=== PATIENT | female | born 1960 | race Caucasian/White ===

== ENCOUNTER → 2017-12-11 | Outpatient (CLI) | payer BC ==
[2017-12-11 18:59] LABS: DHEA Sulfate 14.6 ug/dL (26.0-430.0)
[2017-12-11 19:15] LABS: Progesterone <0.2 ng/mL
[2017-12-15 10:37] LABS: Pregnenolone 15 ng/dL (22-237)
[2017-12-16 13:16] LABS: Estrone 44 pg/mL
== END | disposition home or self-care (01) ==
LOC: LABWHC1 12:17
PROVIDERS: ATTEND Surgery
DX: E34.9 Endocrine disorder, unspecified (principal); R61 Generalized hyperhidrosis; G47.00 Insomnia, unspecified; R53.81 Other malaise; R68.82 Decreased libido
CPT/HCPCS: 36415; 82627; 82670; 82679; 83001; 84140; 84144; 84270; 84402; 84403

== ENCOUNTER → 2018-03-09 | Outpatient (CLI) | payer OTHER ==
--- NOTE | 2018-03-09 13:33 | XR ---
EXAMINATION TYPE: XR Hip Bilateral Complete DATE OF EXAM: 03/09/2018 CLINICAL HISTORY: Chronic bilateral hip pain TECHNIQUE: AP and frogleg views of the bilateral hips are obtained. COMPARISON: None. FINDINGS: There is no acute fracture/dislocation evident in either hip. The joint space in the bila teral hips appears within normal limits. The overlying soft tissue appears unremarkable bilaterally. IMPRESSION: Unremarkable 2 views of the bilateral hips.
== END | disposition home or self-care (01) ==
LOC: RADXRMAIN 12:49
PROVIDERS: ATTEND Family Medicine
DX: M25.552 Pain in left hip (principal); M25.551 Pain in right hip
CPT/HCPCS: 73521

== ENCOUNTER → 2019-02-10 | Outpatient (CLI) | payer BC ==
[2019-02-10 10:24] LABS: Potassium 4.7 mmol/L (3.5-5.1)
== END | disposition home or self-care (01) ==
LOC: LABPAT 09:16
PROVIDERS: ATTEND Podiatrist Foot & Ankle Surgery
DX: Z01.812 Encounter for preprocedural laboratory examination (principal)
CPT/HCPCS: 36415; 80051

== ENCOUNTER 2019-02-16 11:38 | Day surgery (SDC) | payer BC, OTHER ==
[2019-02-09 12:05] VITALS: BMI 36.8
[~2019-02-16 11:38] MED LIST: DEXAMETHASONE SOD PHOSPHATE 10 MG/ML 1 ML VIAL IV ONE; HYDROmorphone 0.5 MG/0.5 ML SYRINGE IVP PRN; LACTATED RINGERS 1,000 ML IV SCH; LIDOCAINE 1% 20 ML VIAL (10MG/ML) FOR IV START INTRADERMA PRN; ONDANSETRON 4 MG/2 ML VIAL IVP ONE; Pre Op ABX Message 1 EACH MISC MISCELLANE ONE; SCOPOLAMINE 1.5MG/72HR PATCH TRANSDERM ONE
[2019-02-16 11:57] VITALS: TEMP 97.8
[2019-02-16] MEDS ORDERED: LACTATED RINGERS 1,000 ML IV ONE (11:58)
[2019-02-16] MEDS ORDERED: MIDAZOLAM 2 MG/2 ML VIAL ONE (13:18)
[2019-02-16] MEDS ORDERED: PROPOFOL 10 MG/ML 20 ML VIAL IV ONE (13:18)
[2019-02-16] MEDS ORDERED: fentaNYL (PF) 50 MCG/ML 2 ML AMP ONE (13:18)
[2019-02-16] MEDS ORDERED: LIDOCAINE 1% (PF) 10 MG/ML (30 ML SDV) SQ ONE ×2 (13:31)
--- NOTE | 2019-02-16 13:58 | P.PCN ---
Date of Procedure: 02/16/19 Preoperative Diagnosis: Plantar fasciitis right foot Postoperative Diagnosis: Same Procedure(s) Performed: Endoscopic plantar fasciotomy right foot Anesthesia: MAC Surgeon: Gucci Diaz Operative Findings: Unremarkable
--- NOTE | 2019-02-16 14:02 | P.OP ---
Date of Procedure: 02/16/19 Preoperative Diagnosis: Plantar fasciitis right foot Postoperative Diagnosis: Same Procedure(s) Performed: Endoscopic plantar fasciotomy procedure right foot Surgeon: Gucci Diaz Description of Procedure: On the date of surgery the patient was taken to the operating room in good condition placed on the operating table in a supine position where an IV was started and adequate IV anesthetic agents were utilized anesthesia was then further supplemented with approximately 9 mL of 1% Xylocaine plain given in an infiltrative block to the patient's right heel. Line Patient's right foot and ankle were then prepped and draped in the usual aseptic manner and over heavy web roll padding an ankle tourniquet was placed above the malleoli of the patient's right ankle. Patient's right foot and ankle were then elevated and exsanguinated of blood and after approximately 1 minutes. A time the ankle tourniquet to the right ankle was inflated to approximately 250 mmHg. At this point in time attention was directed to the plantar medial side of the patient's right heel where an approximately 1 cm linear incision was made the incision was made in line with the medial band of the inner fascia was deepened through the level cutaneous tissues area dissection was then carried deep down to the level of the medial band of the plantar fascia elevator was used to identify the plantar fascia was passed along the inferior surface of the plantar fascia from medially to laterally. The obturator and cannula complex was then inserted and a lateral exit portal incision was made scope was introduced and the medial side and L blade from the lateral side and the medial band of the plantar fascia was severed upon completion of this fascial probe was used to ensure that all fibers had been severed and when this was seen to be true surgical site was flushed with copious amounts of sterile saline solution. The cannula was removed and the skin edges were coaptated and maintained utilizing 4-0 nylon simple interrupted suture. Adaptic Kerlix fluffs four-inch conformer and 4 inch Coban was used to form a compression dressing and the ankle tourniquet to the patient's right ankle was deflated adequate hemostatic return was seen in all digits the patient's right foot. Patient tolerated the surgery and anesthesia well was taken recovery room in good postoperative condition.
[2019-02-16 14:03] VITALS: RESP 16
[2019-02-16 14:36] VITALS: BP 132/77; PULSE 80
== END 2019-02-16 14:35 | disposition home or self-care (01) ==
LOC: OR 11:38
PROVIDERS: ATTEND Podiatrist Foot & Ankle Surgery
DX: M72.2 Plantar fascial fibromatosis (principal); E78.5 Hyperlipidemia, unspecified; E03.9 Hypothyroidism, unspecified; I11.9 Hypertensive heart disease without heart failure; F32.9 Major depressive disorder, single episode, unspecified; G43.909 Migraine, unspecified, not intractable, without status migrainosus; E78.00 Pure hypercholesterolemia, unspecified; J45.909 Unspecified asthma, uncomplicated; K21.9 Gastro-esophageal reflux disease without esophagitis; E66.9 Obesity, unspecified; Z68.36 Body mass index [BMI] 36.0-36.9, adult; Z79.890 Hormone replacement therapy; Z79.899 Other long term (current) drug therapy; Z79.51 Long term (current) use of inhaled steroids; Z88.1 Allergy status to other antibiotic agents; Z88.8 Allergy status to other drugs, medicaments and biological substances
CPT/HCPCS: 29893; J2250; J1100; J2405; J2001; J3010; J2704

== ENCOUNTER → 2019-05-03 | Outpatient (CLI) | payer BC ==
--- NOTE | 2019-05-03 16:05 | CONS ---
CONSULTATION REASON FOR CONSULTATION: Sleep apnea. This is 59-year-old obese female patient who has classical manifestations of obstructive sleep apnea, including loud snoring, witnessed apneas, and excessive fatigue and sleepiness during the day. She also has extremely restless legs. She reports a constant urge to move her legs, to the point where she cannot watch a TV show or a movie because she has to get up and walk to comfort herself. Upon walking and applying pressure to her feet she feels better. She goes to bed around midnight and wakes up between 5 and 6 a.m. in the morning. She feels that she is taking only 4-5 hours of sleep. She wakes up tired in the morning. She falls asleep during the day and she takes around 30-minute naps at least twice during the day. Her weight is up over the years. She has gained a significant amount of weight, probably on the order of 25-30 pounds. Current Oakland score is 12. No history of any iron deficiency. No history of kidney disease. No history of liver disease. No family history of restless legs syndrome. The patient has never been diagnosed having obstructive sleep apnea. She has history of hypothyroidism and she is maintained on thyroid hormone replacement. During a recent surgical intervention for plantar fasciitis, she was told by the medical team that she had excessive apneas that were prolonged, and she was alerted to the possibility of sleep apnea. PAST MEDICAL HISTORY: 1. Migraine. 2. Hyperlipidemia. 3. Depression. 4. Hypothyroidism. 5. Hypertension. 6. Asthma. 7. Plantar fasciitis. 8. Symptoms of restless legs syndrome. PAST SURGICAL HISTORY: Past surgical history includes: 1. Foot surgery. 2. C section. 3. Breast reduction. 4. Hysterectomy. DRUG ALLERGIES: NEOSPORIN and TAPES. OUTPATIENT MEDICATION: Outpatient medications include: 1. Zocor 10 mg p.o. daily. 2. Zoloft 100 mg p.o. daily. 3. Topamax 25 mg p.o. per day. 4. Zyrtec 10 mg p.o. daily. 5. Levothyroxine 50 mcg p.o. daily. 6. Rizatriptan 10 mg as needed. 7. Omeprazole 20 mg p.o. daily. 8. Benazepril 10 mg p.o. daily. 9. ProAir HFA on an as-needed basis. FAMILY HISTORY: Negative for sleep apnea. No history of restless legs syndrome. SOCIAL HISTORY: Nonsmoker. No history of alcoholism. No history of IV drugs. REVIEW OF SYSTEMS: Fourteen-point review of systems was done. Positive findings are all mentioned in the history of present illness. No history of grinding of the teeth. No sleepwalking or sleeptalking. She wakes up with a dry mouth. No anxiety. No panic attacks. No palpitations. No heartburn. No chest pain. No dyspnea. PHYSICAL EXAMINATION: VITAL SIGNS: BP is 147/85, pulse 90, respiratory rate 16, temperature 97.9, saturation 96% on room air. Height is 5 feet 3 inches, weight 221. BMI 39.1. Neck size 15-1/2 inches. GENERAL APPEARANCE: Calm, comfortable. HEAD: Atraumatic, normocephalic. NECK: Supple. She has a Mallampati class IV with an overbite. Posterior oropharynx cannot be seen on today's evaluation. LUNGS: Clear to auscultation. HEART: Heart sounds are regular rate and rhythm. Normal S1, S2. No S3, S4. No murmurs. ABDOMEN: Soft, nontender. No organomegaly. EXTREMITIES: No edema. No cyanosis or clubbing. NEUROLOGIC: Alert and oriented x3. There is no focal neurological deficit. PSYCHIATRY: Negative for anxiety or depression. SKIN: Negative for any wounds or ulceration. IMPRESSION: 1. Chronic hypersomnia, under investigation. Oakland score is 12. High clinical suspicion of obstructive sleep apnea. Also there is a component of restless legs syndrome. 2. Symptoms of restless leg syndrome. 3. Loud snoring. 4. Chronic hypersomnia; Oakland score of 12. 5. Asthma, currently inactive and stable. 6. Hypertension. 7. Hypothyroidism. 8. Depression. 9. Migraines. 10.Hyperlipidemia. 11.History of plantar fasciitis. PLAN: 1. Proceed with a screening polysomnogram. 2. Polysomnography will be needed to assess the extent of sleep fragmentation and to determine the predominant pathology. I think the patient has sleep apnea, and at same time she may have RLS, periodic limb movements causing significant fragmentation of her sleep. 3. Encourage weight loss. 4. Implement good sleep hygiene measures. 5. See me back in the office to discuss results. Further recommendations are to follow. At one point we need to also check the patient's iron status to make sure there is no underlying iron deficiency. Will continue to follow. MMODL / IJN: [id number] /
== END | disposition home or self-care (01) ==
LOC: SLEEP 14:18
PROVIDERS: ATTEND Internal Medicine Critical Care Medicine
DX: G47.10 Hypersomnia, unspecified (principal); G43.909 Migraine, unspecified, not intractable, without status migrainosus; F32.9 Major depressive disorder, single episode, unspecified; J45.909 Unspecified asthma, uncomplicated; E03.9 Hypothyroidism, unspecified; I10 Essential (primary) hypertension; E78.5 Hyperlipidemia, unspecified; Z88.1 Allergy status to other antibiotic agents; Z79.891 Long term (current) use of opiate analgesic; Z79.890 Hormone replacement therapy; Z79.899 Other long term (current) drug therapy; Z87.39 Personal history of other diseases of the musculoskeletal system and connective tissue; Z91.048 Other nonmedicinal substance allergy status
CPT/HCPCS: 99201

== ENCOUNTER → 2020-12-05 | Outpatient (CLI) | payer MEDICARE ==
--- NOTE | 2020-12-06 13:43 | MM ---
Reason for exam: screening (asymptomatic). Last mammogram was performed 5 years and 5 months ago. History: Patient is postmenopausal. Reduction of the left breast, 1993. Reduction of the right breast, 1993. Took progesterone for 6 months. Physical Findings: A clinical breast exam by your physician is recommended on an annual basis and results should be correlated with mammographic findings. MG Screening Mammo w CAD Bilateral CC and MLO view(s) were taken. Prior study comparison: June 22, 2015, bilateral MG screening mammo w CAD. There are scattered fibroglandular densities. There are benign appearing round linear calcifications bilaterally. There is chronic nodularity in the left breast. There is no discrete abnormality. ASSESSMENT: Benign, BI-RAD 2 RECOMMENDATION: Routine screening mammogram of both breasts in 1 year.
== END | disposition home or self-care (01) ==
LOC: RADMAMWWP 15:29
PROVIDERS: ATTEND Family Medicine
DX: Z12.31 Encounter for screening mammogram for malignant neoplasm of breast (principal)
CPT/HCPCS: 77067

== ENCOUNTER → 2021-06-28 | Outpatient (CLI) | payer MEDICARE ==
[2021-06-28 15:06] LABS: HCT 40.5 % (37.2-46.3); HGB 13.7 g/dL (12.0-15.0); MCH 30.6 pg (27.0-32.0); MCHC 33.8 g/dL (32.0-37.0); MCV 90.6 fL (80.0-97.0); Platelet Count 268 X 10*3/uL (140-440); RBC 4.47 X 10*6/uL (4.10-5.20); RDW 12.3 % (11.5-14.5); WBC 5.32 X 10*3/uL (4.50-10.00)
[2021-06-28 15:53] LABS: Hemoglobin A1C 4.5 % (4.0-6.0)
[2021-06-28 19:29] LABS: % Iron Saturation 35.96 (12.00-45.00); African American GFR (CKD) 109.9 (60.0-200.0); Albumin 4.4 g/dL (3.80-4.90); Albumin/Globulin Ratio 2.2 (1.60-3.17); Anion Gap 9.2 mmol/L (4.00-12.00); BUN/Creat Ratio 17.14 Ratio (12.00-20.00); Calcium 9.3 mg/dL (8.7-10.3); Carbon Dioxide 24.8 mmol/L (21.6-31.8); Chol/HDL Ratio 3.42; LDL Cholesterol,Calculated 90.8 mg/dL (0.0-131.0); Magnesium 2.1 mg/dL (1.5-2.4); Non-African American GFR(CKD) 94.8 (60.0-200.0); Potassium 3.7 mmol/L (3.5-5.5); Total Bilirubin 0.9 mg/dL (0.3-1.2); Total Protein 6.4 g/dL (6.2-8.2); VLDL Calculation 30.2 mg/dL (5.00-40.00)
== END | disposition home or self-care (01) ==
LOC: LABWHC1 09:06
PROVIDERS: ATTEND Surgery
DX: Z13.228 Encounter for screening for other metabolic disorders (principal); K90.9 Intestinal malabsorption, unspecified; Z98.84 Bariatric surgery status
CPT/HCPCS: 36415; 80053; 80061; 82306; 82607; 82746; 83036; 83540; 83550; 83735; 84207; 84425; 84590; 84630; 85027

== ENCOUNTER → 2021-08-16 | Outpatient (CLI) | payer MEDICARE ==
--- NOTE | 2021-08-16 11:19 | USB ---
Reason for exam: clinical finding. History: Patient is postmenopausal. Reduction of the left breast, 1993. Reduction of the right breast, 1993. Took progesterone for 6 months. Indicated problem(s): palpable abnormality in the left breast. 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 US Breast Limited LT Technologist: Maren Briones Left limited breast ultrasound including focal area of concern, retroareolar and axilla demonstrates a 0.4 x 0.7 x 0.3cm anechoic lesion at 4 o'clock. Scanned 2-6 o'clock. These results were verbally communicated with the patient and result sheet given to the patient on 08/16/21. ASSESSMENT: Probably benign, BI-RAD 3 RECOMMENDATION: Follow-up diagnostic mammogram of both breasts in 4 months. Ultrasound of the left breast in 4 months. Back on schedule for November 2021.
== END | disposition home or self-care (01) ==
LOC: RADUSWWP 08:20
PROVIDERS: ATTEND Family Medicine
DX: N64.89 Other specified disorders of breast (principal); Z78.0 Asymptomatic menopausal state

== ENCOUNTER → 2022-01-02 | Outpatient (CLI) | payer MEDICARE ==
[2022-01-02 14:54] LABS: HCT 46.5 % (37.2-46.3); HGB 15.5 g/dL (12.0-15.0); MCH 30.5 pg (27.0-32.0); MCHC 33.3 g/dL (32.0-37.0); MCV 91.5 fL (80.0-97.0); Mean Platelet Volume 9.5 fL (9.5-12.2); NRBC Per 100 WBC 0 /100 WBCS (0.0-0.0); Platelet Count 267 X 10*3/uL (140-440); RBC 5.08 X 10*6/uL (4.10-5.20); RDW 12.3 % (11.5-14.5)
[2022-01-02 15:49] LABS: African American GFR (CKD) 110.2 (60.0-200.0); Blood Urea Nitrogen 16.4 mg/dL (9.0-27.0); Calcium 9.7 mg/dL (8.7-10.3); Carbon Dioxide 24.6 mmol/L (20.0-27.5); Non-African American GFR(CKD) 95.1 (60.0-200.0); Potassium 4.2 mmol/L (3.5-5.5)
[2022-01-02 16:45] LABS: Folate, Serum 8.5 ng/mL (4.40-31.00)
[2022-01-02 22:51] LABS: % Iron Saturation 40.56 (12.00-45.00); Albumin 4.6 g/dL (3.8-4.9); Magnesium 2.2 mg/dL (1.5-2.4); Total Bilirubin 0.4 mg/dL (0.30-1.20)
[2022-01-03 12:44] LABS: Zinc, Serum 68 ug/dL (60-130)
== END | disposition home or self-care (01) ==
LOC: LABWHC1 08:59
PROVIDERS: ATTEND Specialist/Technologist Athletic Trainer
DX: Z13.228 Encounter for screening for other metabolic disorders (principal); K90.9 Intestinal malabsorption, unspecified; Z98.84 Bariatric surgery status
CPT/HCPCS: 36415; 80051; 82040; 82247; 82306; 82310; 82465; 82565; 82607; 82746; 82947; 83036; 83540; 83550; 83718; 83721; 83735; 84075; 84155; 84207; 84425; 84450; 84460; 84478; 84520; 84590; 84630; 85027

== ENCOUNTER → 2022-06-20 | Outpatient (CLI) | payer MEDICARE ==
[2022-06-20 17:53] LABS: Basophils # (A) 0.05 X 10*3/uL (0.00-0.10); Basophils % (A) 0.8 %; Eosinophils # (A) 0.21 X 10*3/uL (0.04-0.35); Eosinophils % (A) 3.2 %; HCT 45.5 % (37.2-46.3); HGB 15.3 g/dL (12.0-15.0); Immature Grans, Automated 0.3 %; Lymphocytes # (A) 2.23 X 10*3/uL (0.90-5.00); Lymphocytes % (A) 33.8 %; MCH 30.1 pg (27.0-32.0); MCHC 33.6 g/dL (32.0-37.0); MCV 89.4 fL (80.0-97.0); Mean Platelet Volume 9.1 fL (9.5-12.2); Monocytes # (A) 0.35 X 10*3/uL (0.20-1.00); Monocytes % (A) 5.3 %; NRBC Per 100 WBC 0 /100 WBCS (0.0-0.0); Neutrophils # (A) 3.74 X 10*3/uL (1.80-7.70); Neutrophils % (A) 56.6 %; Platelet Count 262 X 10*3/uL (140-440); RBC 5.09 X 10*6/uL (4.10-5.20); RDW 12.1 % (11.5-14.5)
[2022-06-20 18:26] LABS: Chol/HDL Ratio 4.73 Ratio; Iron 108 ug/dL (50-170); LDL Cholesterol,Calculated 196.6 mg/dL (0.0-131.0)
[2022-06-20 18:30] LABS: ALT 36 U/L (8-44); AST 33 U/L (13-35); African American GFR (CKD) 114.8 (60.0-200.0); Albumin 4.8 g/dL (3.8-4.9); Albumin/Globulin Ratio 2.29 (1.60-3.17); Alkaline Phosphatase 98 U/L (41-126); Blood Urea Nitrogen 16.8 mg/dL (9.0-27.0); Calcium 9.7 mg/dL (8.7-10.3); Chloride 106 mmol/L (96-109); Globulin 2.1 g/dL (1.6-3.3); Glucose 97 mg/dL (70-110); Non-African American GFR(CKD) 99.1 (60.0-200.0); Potassium 4.9 mmol/L (3.5-5.5); Sodium 142 mmol/L (135-145); Total Protein 6.9 g/dL (6.2-8.2)
[2022-06-22 10:20] LABS: Vit B1(Thiamine) 75 ug/L (38-122)
== END | disposition home or self-care (01) ==
LOC: LABWHC1 11:22
PROVIDERS: ATTEND Family Medicine
DX: I10 Essential (primary) hypertension (principal); E03.9 Hypothyroidism, unspecified; E78.00 Pure hypercholesterolemia, unspecified; R74.01 Elevation of levels of liver transaminase levels
CPT/HCPCS: 36415; 80053; 80061; 82306; 82607; 82746; 83036; 83540; 84207; 84425; 84590; 84630; 85025

== ENCOUNTER → 2022-07-04 | Outpatient (CLI) | payer MEDICARE ==
--- NOTE | 2022-07-07 19:42 | MM ---
Reason for Exam: Screening (asymptomatic). Last mammogram was performed 1 year(s) and 7 month(s) ago. Patient History: Menarche at age 12. First Full-Term at age 25. Hysterectomy at age 55. Postmenopausal. Progesterone for 6 months. 1993, Reduction on the Right side. 1993, Reduction on the Left side. Risk Values: Lynne 5 year model risk: 1.4%. NCI Lifetime model risk: 7.2%. Prior Study Comparison: 03/20/2004 Bilateral Screening Mammogram, [facility]. 06/22/2015 Bilateral Screening Mammogram, [facility]. 12/05/2020 Bilateral Screening Mammogram, [facility]. Tissue Density: There are scattered fibroglandular densities. Findings: Analyzed By CAD. Benign secretory calcifications on the left. No significant change from prior exams. A couple mole markers on the left. Overall Assessment: Benign, BI-RAD 2 Management: Screening Mammogram of both breasts in 1 year. 1. Patient should continue monthly self breast exams. 2. A clinical breast exam by your physician is recommended on an annual basis. 3. This exam should not preclude additional follow-up of suspicious palpable abnormalities. Electronically signed and approved by: Jessika Snell M.D. Radiologist
== END | disposition home or self-care (01) ==
LOC: RADMAMWWP 09:11
PROVIDERS: ATTEND Family Medicine
DX: Z12.31 Encounter for screening mammogram for malignant neoplasm of breast (principal); Z78.0 Asymptomatic menopausal state
CPT/HCPCS: 77063; 77067

== ENCOUNTER → 2022-09-30 | Outpatient (CLI) | payer MEDICARE ==
[2022-09-30 18:35] LABS: ALT 22 U/L (8-44); AST 17 U/L (13-35); LDL Cholesterol,Calculated 143.3 mg/dL (0.0-131.0)
== END | disposition home or self-care (01) ==
LOC: LABWHC1 11:02
PROVIDERS: ATTEND Family Medicine
DX: E03.9 Hypothyroidism, unspecified (principal); E78.00 Pure hypercholesterolemia, unspecified
CPT/HCPCS: 36415; 80061; 84443; 84450; 84460

== ENCOUNTER → 2023-04-02 | Outpatient (CLI) | payer MEDICARE ==
[2023-04-02 15:57] LABS: Basophils # (A) 0.04 X 10*3/uL (0.00-0.10); Basophils % (A) 0.6 %; Eosinophils # (A) 0.15 X 10*3/uL (0.04-0.35); Eosinophils % (A) 2.2 %; HGB 14.5 g/dL (12.0-15.0); Immature Grans, Automated 0.1 %; Lymphocytes # (A) 1.88 X 10*3/uL (0.90-5.00); Lymphocytes % (A) 27.9 %; MCH 30.3 pg (27.0-32.0); MCHC 33.7 g/dL (32.0-37.0); MCV 89.8 fL (80.0-97.0); Mean Platelet Volume 9.3 fL (9.5-12.2); Monocytes % (A) 5.9 %; NRBC Per 100 WBC 0 /100 WBCS (0.0-0.0); Neutrophils # (A) 4.27 X 10*3/uL (1.80-7.70); Neutrophils % (A) 63.3 %; Platelet Count 219 X 10*3/uL (140-440); RBC 4.79 X 10*6/uL (4.10-5.20); RDW 12.4 % (11.5-14.5); WBC 6.75 X 10*3/uL (4.50-10.00)
[2023-04-02 16:12] LABS: ALT 25 U/L (8-44); AST 19 U/L (13-35); African American GFR (CKD) 108.4 (60.0-200.0); Albumin 4.6 g/dL (3.8-4.9); Albumin/Globulin Ratio 2.42 (1.60-3.17); Alkaline Phosphatase 94 U/L (41-126); Blood Urea Nitrogen 15.4 mg/dL (9.0-27.0); Calcium 9.3 mg/dL (8.7-10.3); Carbon Dioxide 23.4 mmol/L (20.0-27.5); Chloride 107 mmol/L (96-109); Globulin 1.9 g/dL (1.6-3.3); Glucose 99 mg/dL (70-110); Iron 92 ug/dL (50-170); Magnesium 2.1 mg/dL (1.5-2.4); Non-African American GFR(CKD) 93.5 (60.0-200.0); Phosphorus 4.2 mg/dL (2.4-5.1); Potassium 4.2 mmol/L (3.5-5.5); Sodium 142 mmol/L (135-145); Total Protein 6.5 g/dL (6.2-8.2)
[2023-04-02 16:13] LABS: % Iron Saturation 26.55 (12.00-45.00); Ferritin 23.1 ng/mL (10.0-291.0); Total Iron Binding Capacity 346 ug/dL (228-460)
[2023-04-02 16:23] LABS: Chol/HDL Ratio 3.59 Ratio; LDL Cholesterol,Calculated 145.2 mg/dL (0.0-131.0)
[2023-04-03 12:24] LABS: Zinc, Serum 69 ug/dL (60-130)
== END | disposition home or self-care (01) ==
LOC: LABWHC1 09:33
DX: Z13.228 Encounter for screening for other metabolic disorders (principal); I10 Essential (primary) hypertension; E03.9 Hypothyroidism, unspecified; E78.00 Pure hypercholesterolemia, unspecified; K21.9 Gastro-esophageal reflux disease without esophagitis; E66.01 Morbid (severe) obesity due to excess calories; R73.03 Prediabetes; R74.01 Elevation of levels of liver transaminase levels; Z98.84 Bariatric surgery status
CPT/HCPCS: 36415; 80053; 80061; 82306; 82607; 82728; 82746; 83036; 83540; 83550; 83735; 84100; 84425; 84443; 84590; 84630; 85025

== ENCOUNTER → 2023-04-07 | Outpatient (CLI) | payer MEDICARE ==
--- NOTE | 2023-04-07 18:05 | XR ---
EXAMINATION TYPE: XR ribs LT DATE OF EXAM: 04/07/2023 COMPARISON: NONE HISTORY: 63-year-old female R07.1 TECHNIQUE: 3 views FINDINGS: Strandy atelectasis at the left base. No displaced left rib fractures seen. Some surgical m aterial at the left upper quadrant. IMPRESSION: No displaced left rib fracture seen.
== END | disposition home or self-care (01) ==
LOC: RADXRMAIN 12:15
PROVIDERS: ATTEND Family Medicine
DX: R07.1 Chest pain on breathing (principal)

== ENCOUNTER → 2023-11-24 | Outpatient (CLI) | payer MEDICARE ==
[2023-11-24 14:02] LABS: Partial Thromboplastin Time 28.4 sec (22.0-30.0); Prothrombin Time 11.1 sec (10.0-12.5)
[2023-11-24 15:26] LABS: Basophils # (A) 0.05 X 10*3/uL (0.00-0.10); Basophils % (A) 0.7 %; Eosinophils # (A) 0.19 X 10*3/uL (0.04-0.35); Eosinophils % (A) 2.6 %; HCT 40.2 % (37.2-46.3); HGB 14.1 g/dL (12.0-15.0); Lymphocytes # (A) 1.88 X 10*3/uL (0.90-5.00); Lymphocytes % (A) 25.4 %; MCH 30.6 pg (27.0-32.0); MCHC 35.1 g/dL (32.0-37.0); MCV 87.2 FL (80.0-97.0); Mean Platelet Volume 9.6 FL (9.5-12.2); Monocytes # (A) 0.26 X 10*3/uL (0.20-1.00); Monocytes % (A) 3.5 %; NRBC Per 100 WBC 0 X 10*3/uL (0.00-0.01); Neutrophils # (A) 4.99 X 10*3/uL (1.80-7.70); Neutrophils % (A) 67.4 %; Platelet Count 248 X 10*3/uL (140-440); RBC 4.61 X 10*6/uL (4.10-5.20); RDW 12.4 % (11.5-14.5)
[2023-11-24 15:36] LABS: Anion Gap 13.9 mmol/L (4.00-12.00); Carbon Dioxide 21.1 mmol/L (21.6-31.8); Potassium 3.6 mmol/L (3.5-5.5)
== END | disposition home or self-care (01) ==
LOC: LABWHC1 11:58
PROVIDERS: ATTEND Orthopaedic Surgery Adult Reconstructive Orthopaedic Surgery
DX: Z01.812 Encounter for preprocedural laboratory examination (principal); R94.31 Abnormal electrocardiogram [ECG] [EKG]
CPT/HCPCS: 36415; 80051; 85025; 85610; 85730; 93005

== ENCOUNTER → 2024-08-30 | Outpatient (CLI) | payer MEDICARE ==
--- NOTE | 2024-08-31 08:39 | BD ---
EXAMINATION TYPE: Axial Bone Density DATE OF EXAM: 08/30/2024 CLINICAL HISTORY: 64 years old Female. ICD-10 CODE: Z78.0 POST MENOPAUSAL WITHOUT HRT Height: 63 Weight: 177.4 FRAX RISK QUESTIONS: Alcohol (3 or more units per day): no Family History (Parent hip fracture): yes Glucocorticoids (More than 3mos): no (Ex: prednisone, prednisolone, methylprednisolone, dexamethasone, and hydrocortisone). History of Fracture in Adulthood: yes Secondary Osteoporosis: 1. Type 1 Diabetes: no 2. Hyperthyroidism: no 3. Menopause before 45: no 4. Malnutrition: no 5. Chronic liver disease: no Rheumatoid Arthritis: no Current Tobacco Use: no RISK FACTORS HISTORY OF: History of Wrist Fracture: left When: 2023 Surgery to Spine/Hip(right/left)/Wrist (right/left): no MEDICATIONS: Thyroid Medications: levothyroxine How Lon years EXAM MEASUREMENTS: Bone mineral densitometry was performed using the [employer] System. Bone mineral density as measured about the Lumbar spine is: ----- L1-L4(G/cm2): 0.946 T Score Values are as follows: ----- L1: -3.0 ----- L2: -2.6 ----- L3: -1.4 ----- L4: -1.2 ----- L1-L4: -1.9 Z Score Values are as follows: ----- L1: -2.2 ----- L2: -1.7 ----- L3: -0.6 ----- L4: -0.3 ----- L1-L4: -1.1 Bone mineral density : baseline Bone mineral density about the R hip (g/cm2): 0.770 Bone mineral density about the L hip (g/cm 0.755 T Score values are as follows: -----R Neck: -2.4 -----L Neck: -2.4 -----R Total: -1.9 -----L Total: -2.0 Z Score values are as follows: -----R Neck: -1.3 -----L Neck: -1.4 -----R Total: -1.2 -----L Total: -1.3 Bone mineral density : baseline FRAX%s: The graph provided illustrates a 33.6% chance for a major osteoporotic fx and a 3.7% chance f or the hips probability for fx in 10 years time. IMPRESSION: Osteopenia (T Score between -2.5 and -1). There is slightly increased risk of fracture and the patient may be considered for treatment. Re-Screen 2-5 years. NOTE: T-SCORE=SD OF THE YOUNG ADULT MEAN. [facility], , 08/31/2024 8:36 AM
--- NOTE | 2024-08-31 10:42 | MM ---
Reason for Exam: Screening (asymptomatic). Last mammogram was performed 2 year(s) and 2 month(s) ago. Patient History: Menarche at age 12. First Full-Term at age 25. Left ovary removed at age 55. Right ovary removed at age 55. Hysterectomy at age 55. Postmenopausal. Progesterone for 6 months. 1993, Reduction on the Right side. 1993, Reduction on the Left side. Risk Values: Lynne 5 year model risk: 1.5%. NCI Lifetime model risk: 6.8%. Prior Study Comparison: 06/22/2015 Bilateral Screening Mammogram, [facility]. 12/05/2020 Bilateral Screening Mammogram, [facility]. 07/04/2022 Bilateral MG 3D screening mammo w/cad, [facility]. Tissue Density: There are scattered areas of fibroglandular density. Findings: Analyzed By CAD. There is no suspicious group of microcalcifications or new suspicious mass in either breast. Overall Assessment: Benign, BI-RAD 2 Management: Screening Mammogram of both breasts in 1 year. . Patient should continue monthly self-breast exams. A clinical breast exam by your physician is recommended on an annual basis. This exam should not preclude additional follow-up of suspicious palpable abnormalities. Note on Lynne scores and lifetime risk: 1. A Lynne score greater than 3% is considered moderate risk. If this is the case, consider specialist referral to assess eligibility for a risk reducing agent. 2. If overall lifetime risk for the development of breast cancer is 20% or higher, the patient may qualify for future screening with alternating mammogram and breast MRI. [facility], , 08/31/2024 10:39 AM. Electronically signed and approved by: Hiram Gifford M.D. Radiologis
== END | disposition home or self-care (01) ==
LOC: RADBDWWP 14:56
PROVIDERS: ATTEND Family Medicine
DX: Z12.31 Encounter for screening mammogram for malignant neoplasm of breast (principal); R92.323 Mammographic fibroglandular density, bilateral breasts; M85.89 Other specified disorders of bone density and structure, multiple sites; Z78.0 Asymptomatic menopausal state; Z90.722 Acquired absence of ovaries, bilateral
CPT/HCPCS: 77063; 77067; 77080

== ENCOUNTER → 2024-08-31 | Outpatient (CLI) | payer MEDICARE ==
[2024-08-31 15:02] LABS: HCT 41.6 % (37.2-46.3); HGB 14.2 g/dL (12.0-15.0); MCH 30.7 pg (27.0-32.0); MCHC 34.1 g/dL (32.0-37.0); MCV 89.8 FL (80.0-97.0); Mean Platelet Volume 9.6 FL (9.5-12.2); NRBC Per 100 WBC 0 X 10*3/uL (0.00-0.01); Platelet Count 234 X 10*3/uL (140-440); RBC 4.63 X 10*6/uL (4.10-5.20); RDW 12.4 % (11.5-14.5); WBC 6.47 X 10*3/uL (4.50-10.00)
[2024-08-31 15:03] LABS: Basophils # (A) 0.05 X 10*3/uL (0.00-0.10); Basophils % (A) 0.8 %; Eosinophils # (A) 0.14 X 10*3/uL (0.04-0.35); Eosinophils % (A) 2.2 %; Lymphocytes # (A) 2.07 X 10*3/uL (0.90-5.00); Monocytes # (A) 0.33 X 10*3/uL (0.20-1.00); Monocytes % (A) 5.1 %; Neutrophils # (A) 3.86 X 10*3/uL (1.80-7.70); Neutrophils % (A) 59.6 %
[2024-08-31 15:57] LABS: BUN/Creat Ratio 20.29 Ratio (12.00-20.00); Blood Urea Nitrogen 14.2 mg/dL (9.0-27.0); Carbon Dioxide 24.3 mmol/L (21.6-31.8); Chloride 106 mmol/L (96-109); Chol/HDL Ratio 4.14 Ratio; Glucose 100 mg/dL (70-110); LDL Cholesterol,Calculated 174.3 mg/dL (0.0-131.0); Potassium 4.7 mmol/L (3.5-5.5); Sodium 142 mmol/L (135-145)
[2024-08-31 15:58] LABS: ALT 15 U/L (8-44); AST 18 U/L (13-35); Albumin 4.6 g/dL (3.8-4.9); Albumin/Globulin Ratio 2.42 Ratio (1.60-3.17); Alkaline Phosphatase 102 U/L (41-126); Calcium 9.5 mg/dL (8.7-10.3); Globulin 1.9 g/dL (1.6-3.3); Total Bilirubin 0.6 mg/dL (0.3-1.2); Total Protein 6.5 g/dL (6.2-8.2)
== END | disposition home or self-care (01) ==
LOC: LABWHC1 10:40
PROVIDERS: ATTEND Family Medicine
CPT/HCPCS: 36415; 80053; 80061; 84443; 85025